=== PATIENT | female | born 1955 | race Caucasian/White ===

== ENCOUNTER 2021-07-22 08:52 | Emergency (ER) | payer MEDICARE, BC ==
[~2021-07-22] VITALS: Ht 160 cm; Wt 79.0 kg
[2021-07-22] MEDS ORDERED: ACETAMINOPHEN 325MG TABLET PO ONE (09:15)
[2021-07-22] MEDS ORDERED: LIDOCAINE HCL/EPINEPHRINE 1%-EPI 1:100,000 20 ML VIAL INFIL ONE (09:30)
[2021-07-22] MEDS ORDERED: TOPUD PO (10:43)
[2021-07-22 12:00] VITALS: BP 122/32
== END 2021-07-22 12:00 | disposition home or self-care (01) ==
LOC: ER 08:52
DX: S01.81XA Laceration without foreign body of other part of head, initial encounter (principal); S06.0X0A Concussion without loss of consciousness, initial encounter; M25.511 Pain in right shoulder; R03.0 Elevated blood-pressure reading, without diagnosis of hypertension; R94.31 Abnormal electrocardiogram [ECG] [EKG]; W01.10XA Fall on same level from slipping, tripping and stumbling with subsequent striking against unspecified object, initial encounter; Y93.89 Activity, other specified; Y92.520 Airport as the place of occurrence of the external cause; M19.011 Primary osteoarthritis, right shoulder; M47.817 Spondylosis without myelopathy or radiculopathy, lumbosacral region; M35.9 Systemic involvement of connective tissue, unspecified; J45.909 Unspecified asthma, uncomplicated; Z98.1 Arthrodesis status
CPT/HCPCS: 12001; 70450; 70486; 72100; 72125; 73030; 93005; 99285; J3490; A4565